=== PATIENT | male | born 1995 | race Two or more races ===

== ENCOUNTER 2018-06-17 09:22 | Outpatient (CLI) | END 2018-06-17 23:59 | disposition home or self-care (01) | DX: I65.21 Occlusion and stenosis of right carotid artery (principal) ==

== ENCOUNTER 2018-07-19 14:48 | Emergency (ER) | payer MEDICARE, MEDICAID ==
[~2018-07-19] VITALS: Ht 175.3 cm; Wt 93.0 kg
--- NOTE | 2018-07-19 14:48 | NUR ---
PT BIB FAMILY C/O CP LASTED 20MINS X 1HR AGO. RADIATES TO NECK,JAW AND RT ARM, PT IS AAOX4, NOT IN RESPIRATORY DISTRESS, V/S STABLE. HOOKED TO MONITOR, KEPT RESTED AND COMFORTABLE, EKG DONE. WAITING ER MD FOR EVAL.
--- NOTE | 2018-07-19 15:20 | NUR ---
SEEN AND EXAMINED BY [employer] AND [employer] MANAGER.
--- NOTE | 2018-07-19 15:37 | NUR ---
LABS DRAWNED AND TO LAB. AWAITING RESULTS.
[2018-07-19 15:38] LABS: BASOPHILS # (AUTO) 0.1 /CMM (0.0-0.2); BASOPHILS % (AUTO) 0.8 % (0.0-2.0); HEMATOCRIT 44 % (39-51); HEMOGLOBIN 14.8 g/dL (13.5-17.5); LYMPHOCYTES # (AUTO) 1.7 /CMM (0.8-4.8); MEAN CORPUSCULAR HGB CONC 34 g/dl (31.0-36.0); MEAN CORPUSCULAR VOLUME 92 fL (80-96); MONOCYTES # (AUTO) 0.7 /CMM (0.1-1.30); MONOCYTES % (AUTO) 7.5 % (2.0-12.0); NEUTROPHILS # (AUTO) 6.4 /CMM (1.8-8.9); NEUTROPHILS % (AUTO) 70.7 % (43.0-81.0); PLATELET COUNT (AUTO) 415 /CMM (150-450); RED BLOOD CELL COUNT(AUTO) 4.76 MIL/uL (4.5-6.0); WHITE BLOOD COUNT (AUTO) 9.1 K/uL (4.3-11.0)
--- NOTE | 2018-07-19 15:40 | NUR ---
DIFFICULTY INSERTING IV SALINE LOCK, DEGRASSE AWARE.
[2018-07-19 15:45] LABS: CALCIUM, SERUM 9.7 mg/dL (8.5-10.1); CARBON DIOXIDE 29 mmol/L (21-32); CHLORIDE 100 mmol/L (98-107); GLUCOSE 95 mg/dL (74-106); POTASSIUM 5.3 mmol/L (3.5-5.1); SODIUM SERUM 139 mmol/L (136-145); UREA NITROGEN, BLOOD 14 mg/dL (7-18)
[2018-07-19] MEDS ORDERED: LORAZEPAM 1 MG TABLET ONE (15:59)
[2018-07-19] MEDS ORDERED: LORAZEPAM 1 MG TABLET PO ONE (16:00)
--- NOTE | 2018-07-19 16:02 | NUR ---
RADIOLOGY AT BEDSIDE FOR XRAY.
[2018-07-19 16:05] LABS: ALBUMIN 3.9 g/dL (3.4-5.0); BILIRUBIN,TOTAL 0.3 mg/dL (0.2-1.0)
--- NOTE | 2018-07-19 16:08 | NUR ---
PT IS WHEELED TO CT SCAN VIA [facility].
--- NOTE | 2018-07-19 17:17 | NUR ---
TECH AT BEDSIDE FOR US.
--- NOTE | 2018-07-19 18:58 | NUR ---
FOR REPEAT TROPONIN.
--- NOTE | 2018-07-19 19:06 | NUR ---
REPORT GIVEN TO ANDRE BECKWITH FOR [facility].
--- NOTE | 2018-07-19 19:29 | NUR ---
Troponin re-draw obtained by RJ Kumar and sent to lab.
--- NOTE | 2018-07-19 19:48 | NUR ---
Pt being monitored. Family at bedside.
[2018-07-19 20:11] VITALS: BP 116/78
--- NOTE | 2018-07-19 20:11 | NUR ---
Patient discharged to home in stable condition. Written and verbal after care instructions given. Patient verbalizes understanding of instruction.
== END 2018-07-19 20:12 | disposition home or self-care (01) ==
LOC: ER 14:50
DX: R07.89 Other chest pain (principal); F41.9 Anxiety disorder, unspecified; Z87.74 Personal history of (corrected) congenital malformations of heart and circulatory system; Z95.1 Presence of aortocoronary bypass graft
CPT/HCPCS: 36415; 71045; 71250; 80048; 80076; 84484 ×2; 85025; 85730; 93005 ×2; 93307; 99284; A4606

== ENCOUNTER 2020-09-04 20:59 | Inpatient (IN) | payer MEDICARE, BC ==
[~2020-09-04] VITALS: Ht 175.3 cm; Wt 93.0 kg
--- NOTE | 2020-09-04 21:00 | NUR ---
BIBSELF C/O MIDSTERNAL CHEST PAIN X2HR MILITARY PAY CLERK +DIZZINESS, PT TO BED 9, PT AAOX4, -SOB, NOT IN ANY DISTRESS, PLACED ON MONITOR, VSS, PENDING ER PROVIDER EVAL
[2020-09-04] MEDS ORDERED: DIVA500T2 PO (21:45)
[2020-09-04] MEDS ORDERED: ATOR20TA PO (21:45)
[2020-09-04] MEDS ORDERED: ASPI-1420 PO (21:45)
[2020-09-04] MEDS ORDERED: METO25TA4 PO (21:45)
[2020-09-04] MEDS ORDERED: FLUO20CA36 PO (21:45)
[2020-09-04] MEDS ORDERED: PANT40TA2 PO (21:45)
[2020-09-04] MEDS ORDERED: QUET200T PO (21:45)
[2020-09-04] MEDS ORDERED: HYDROCODONE/APAP 5/325MG TABLET PO PRN (22:00)
[2020-09-04] MEDS ORDERED: ACETAMINOPHEN 325 MG TABLET PO PRN (22:00)
[2020-09-04] MEDS ORDERED: ENOXAPARIN SODIUM 40 MG/0.4 ML DISP.SYRIN SQ SCH (22:00)
[2020-09-04] MEDS ORDERED: MAG HYDROX/AL HYDROX/SIMETH 30 ML UDC PO PRN (22:00)
[2020-09-04] MEDS ORDERED: Z GUARD REMEDY 2 OZ OINT TP PRN (22:00)
[2020-09-04] MEDS ORDERED: MAGNESIUM HYDROXIDE 30 ML UDC PO PRN (22:00)
[2020-09-04] MEDS ORDERED: ZOLPIDEM TARTRATE 5 MG TABLET PO PRN (22:00)
[2020-09-04] MEDS ORDERED: ONDANSETRON HCL/PF 4 MG/2 ML VIAL IVP PRN (22:00)
[2020-09-04] MEDS ORDERED: MORPHINE SULFATE INJ 2 MG/ML DISP.SYRIN IV PRN (22:00)
--- NOTE | 2020-09-04 22:03 | NUR ---
PT ACCEPTED FOR ADMIT. PENDING INPATIENT BED AT THIS TIME
[2020-09-04 22:12] LABS: BASOPHILS % (AUTO) 0.3 % (0.0-2.0); EOSINOPHILS % (AUTO) 0.2 % (0.0-6.0); HEMATOCRIT 46 % (39-51); HEMOGLOBIN 15.6 g/dL (13.5-17.5); LYMPHOCYTES # (AUTO) 0.7 /CMM (0.8-4.8); LYMPHOCYTES % (AUTO) 16.2 % (20.0-44.0); MEAN CORPUSCULAR HGB CONC 34 g/dl (31.0-36.0); MEAN CORPUSCULAR VOLUME 91 fL (80-96); MONOCYTES # (AUTO) 0.5 /CMM (0.1-1.30); MONOCYTES % (AUTO) 12.6 % (2.0-12.0); NEUTROPHILS # (AUTO) 3.1 /CMM (1.8-8.9); NEUTROPHILS % (AUTO) 70.7 % (43.0-81.0); PLATELET COUNT (AUTO) 118 /CMM (150-450); RED BLOOD CELL COUNT(AUTO) 5.03 MIL/uL (4.5-6.0); WHITE BLOOD COUNT (AUTO) 4.3 K/uL (4.3-11.0)
[2020-09-04 22:21] LABS: CALCIUM, SERUM 9.3 mg/dL (8.5-10.1); CARBON DIOXIDE 28 mmol/L (21-32); CHLORIDE 102 mmol/L (98-107); CREATININE 1.4 mg/dL (0.6-1.3); GLUCOSE 94 mg/dL (74-106); SODIUM SERUM 138 mmol/L (136-145); UREA NITROGEN, BLOOD 12 mg/dL (7-18)
[2020-09-04 22:29] LABS: ALANINE AMINOTRANSFERASE 30 U/L (12-78); ALKALINE PHOSPHATASE 76 U/L (46-116); ASPARTATE AMINOTRANSFERASE 21 U/L (15-37); BILIRUBIN,DIRECT 0.1 mg/dL (0.0-0.2); BILIRUBIN,TOTAL 0.4 mg/dL (0.2-1.0); TOTAL PROTEIN, SERUM 7.4 g/dL (6.4-8.2)
--- NOTE | 2020-09-04 22:46 | NUR ---
CALL FROM LAB. RAPID COVID NEGATIVE.
[2020-09-05] MEDS ORDERED: DIVALPROEX SODIUM 500 MG TABLET.DR PO ONE (00:32)
[2020-09-05] MEDS: DIVALPROEX SODIUM 500 MG TABLET.DR PO SCH ×2 (00:57→22:20)
[2020-09-05] MEDS ORDERED: QUETIAPINE FUMARATE 100 MG TABLET ONE (01:54)
[2020-09-05] MEDS: QUETIAPINE FUMARATE 100 MG TABLET PO SCH ×2 (02:09→22:20)
[2020-09-05] MEDS ORDERED: ENOXAPARIN SODIUM 40 MG/0.4 ML DISP.SYRIN SQ ONE (06:30)
[2020-09-05] MEDS ORDERED: ASPIRIN 81 MG TAB.CHEW ONE (07:49)
[2020-09-05] MEDS ORDERED: PANTOPRAZOLE 40 MG TABLET.DR PO ONE (07:49)
[2020-09-05] MEDS: PANTOPRAZOLE 40 MG TABLET.DR PO SCH (08:00)
[2020-09-05] MEDS: METOPROLOL SUCCINATE 25 MG TAB.SR.24H PO SCH (08:00)
[2020-09-05] MEDS: FLUOXETINE HCL 20 MG CAPSULE PO SCH (08:00)
[2020-09-05] MEDS: ASPIRIN EC 81 MG TABLET.DR PO SCH (08:00)
[2020-09-05] MEDS ORDERED: IOHEXOL-350 100 ML VIAL IV ONE (08:24)
[2020-09-05] MEDS ORDERED: IV NS 0.9% 250 ML IV ONE (08:25)
--- NOTE | 2020-09-05 09:08 | NUR ---
PT IS BACK FROM THE CT SCAN.
[2020-09-05 09:26] LABS: BASOPHILS % (AUTO) 0.3 % (0.0-2.0); EOSINOPHILS % (AUTO) 0.7 % (0.0-6.0); HEMATOCRIT 43 % (39-51); HEMOGLOBIN 14.6 g/dL (13.5-17.5); LYMPHOCYTES # (AUTO) 0.9 /CMM (0.8-4.8); LYMPHOCYTES % (AUTO) 29.4 % (20.0-44.0); MEAN CORPUSCULAR HGB CONC 34 g/dl (31.0-36.0); MEAN CORPUSCULAR VOLUME 92 fL (80-96); MONOCYTES # (AUTO) 0.6 /CMM (0.1-1.30); MONOCYTES % (AUTO) 17.5 % (2.0-12.0); NEUTROPHILS # (AUTO) 1.6 /CMM (1.8-8.9); NEUTROPHILS % (AUTO) 52.1 % (43.0-81.0); PLATELET COUNT (AUTO) 101 /CMM (150-450); RED BLOOD CELL COUNT(AUTO) 4.68 MIL/uL (4.5-6.0); WHITE BLOOD COUNT (AUTO) 3.2 K/uL (4.3-11.0)
--- NOTE | 2020-09-05 09:43 | NUR ---
GOT BED 322-1
--- NOTE | 2020-09-05 09:50 | NUR ---
MOLDING ROOM SUPERVISOR AT BEDSIDE FOR ULTRASOUND
[2020-09-05 09:53] LABS: CALCIUM, SERUM 8.9 mg/dL (8.5-10.1); CARBON DIOXIDE 31 mmol/L (21-32); CHLORIDE 101 mmol/L (98-107); CREATININE 1.4 mg/dL (0.6-1.3); GLUCOSE 109 mg/dL (74-106); PHOSPHORUS 3.9 mg/dL (2.5-4.9); POTASSIUM 4.2 mmol/L (3.5-5.1); SODIUM SERUM 137 mmol/L (136-145); UREA NITROGEN, BLOOD 12 mg/dL (7-18)
[2020-09-05 10:05] LABS: CHOLESTEROL 134 mg/dL (<200); HDL CHOLESTEROL 49 mg/dL (40-60); LDL 66 mg/dL (0-99); THYROID STIMULATING HORMONE 2.316 uIU/mL (0.358-3.74); TRIGLYCERIDES 92 mg/dL (30-150)
--- NOTE | 2020-09-05 10:45 | NUR ---
GOT BED [id number]
--- NOTE | 2020-09-05 10:51 | NUR ---
REPORT GIVEN TO ALBIN POWELL. AWAITING TRANSFER TO FLOOR.
--- NOTE | 2020-09-05 11:23 | NUR ---
RN ADMITTING NOTE Patient is A/Ox4, ambulatory, independent, skin is intact. Pt denies any chest pain or discomfort at this time. Vital signs stable, tele monitor SR 70s. All belongings are with the patient. Safety precautions in place, call light is within reach, will continue with plan of care.
[2020-09-05 11:45] VITALS: BP 106/59
[2020-09-05 13:14] LABS: EOSINOPHILS % (MANUAL) 2 % (0-4); LYMPHOCYTES % (MANUAL) 27 % (16-48); MONOCYTES % (MANUAL) 16 % (0-11.0); NEUTROPHILS % (MANUAL) 55 (42-76)
[2020-09-05 16:00] VITALS: BP 103/57
--- NOTE | 2020-09-05 18:19 | NUR ---
RN CLOSING NOTE Patient is resting in bed, A/Ox4, denies any pain or discomfort. Vital signs stable. Safety measures in place, call light within reach, will endorse to security shift supervisor for [facility].
--- NOTE | 2020-09-05 19:30 | NUR ---
TELE/RN OPENING NOTES RECEIVED PATIENT RESTING IN BED. PATIENT IS ALERT AND ORIENTED X 4. NO SIGNS OF SOB OR RESPIRATORY DISTRESS NOTED. PATIENTS BREATHING IS EVEN AND UNLABORED. PATIENT STATES NO PAIN AT THIS TIME. IV ACCESS IN PLACE FLUSHING WELL. SAFETY MEASURES ARE IN PLACE, BED IS LOCKED AND PLACED IN THE LOW POSITION,CALL LIGHT IS WITHIN REACH. WILL CONTINUE WITH PATIENT PLAN OF CARE.
[2020-09-05 20:00] VITALS: BP 120/65
[2020-09-05] MEDS ORDERED: ATORVASTATIN 10 MG TABLET PO SCH (22:00)
[2020-09-06] VITALS: BP 119/66
--- NOTE | 2020-09-06 06:35 | NUR ---
TELE/RN CLOSING NOTES PATIENT IN BED SLEEPING EASY TO AROUSE. PATIENT IS ALERT AND ORIENTED X 4. NO SIGNS OF SOB OR RESPIRATORY DISTRESS NOTED. PATIENTS BREATHING IS EVEN AND UNLABORED. PATIENT STATES NO PAIN AT THIS TIME. IV ACCESS IN PLACE FLUSHING WELL SL. ALL PATIENT NEEDS HAVE BEEN MET DURING SHIFT. SAFETY MEASURES ARE IN PLACE, BED IS LOCKED AND PLACED IN THE LOW POSITION, CALL LIGHT WITHIN REACH. WILL ENDORSE CARE TO DAY SHIFT NURSE.
[2020-09-06 08:00] VITALS: BP 89/57
--- NOTE | 2020-09-06 08:00 | NUR ---
RN Opening note Received patient in bed, AO x 4, able to responds all stimuli. Does no appears pain or distress. Respiratory even and unlabored on room air. Skin is warm to touch, keep clean/dry, intact IV site, and keep remains intact placement. Kept elevated HOB for ensure airway and aspiration precaution, also lowest bed position for safety. Call light within reach, will continue to monitor.
[2020-09-06] MEDS: METOPROLOL SUCCINATE 25 MG TAB.SR.24H PO SCH (09:00)
[2020-09-06] MEDS ORDERED: ENOXAPARIN SODIUM 40 MG/0.4 ML DISP.SYRIN SQ SCH (09:00)
[2020-09-06] MEDS: FLUOXETINE HCL 20 MG CAPSULE PO SCH (09:29)
[2020-09-06] MEDS: PANTOPRAZOLE 40 MG TABLET.DR PO SCH (09:29)
[2020-09-06] MEDS: ASPIRIN EC 81 MG TABLET.DR PO SCH (09:30)
--- NOTE | 2020-09-06 15:00 | NUR ---
Patient discharge to home, given discharge instruction include follow up PCP in 2weeks, diet, medication and side effects and patient verbally understanding. Patient denies chest pain, in stable condition and left facility escorted by staff to private car.
== END 2020-09-06 14:50 | disposition home or self-care (01) | DRG 302 ==
LOC: ER 21:02 → TRANSITION 09-05 01:24 → TELE 09-05 09:48 → TRANSITION 09-05 09:48 → TELE 09-05 11:00 → MED 09-06 08:07
PROVIDERS: ADMIT Nurse Practitioner Acute Care; ATTEND Nurse Practitioner Acute Care
DX: I25.10 Atherosclerotic heart disease of native coronary artery without angina pectoris (principal); R73.03 Prediabetes; N17.0 Acute kidney failure with tubular necrosis; F25.9 Schizoaffective disorder, unspecified; K21.9 Gastro-esophageal reflux disease without esophagitis; I10 Essential (primary) hypertension; D69.6 Thrombocytopenia, unspecified; E78.5 Hyperlipidemia, unspecified; Z20.822 Contact with and (suspected) exposure to COVID-19; Z98.890 Other specified postprocedural states; Z68.30 Body mass index [BMI] 30.0-30.9, adult; E66.9 Obesity, unspecified; F39 Unspecified mood [affective] disorder
CPT/HCPCS: 36415; 71045-TC; 75574; 80048-TC; 80061-TC; 80076-TC; 83735-TC; 83880; 84100-TC; 84443-TC; 84484-TC; 85025-TC; 85730-TC; 87081-TC; 93307-TC; C9803; G0378; J1650; J7050; Q9967